=== PATIENT | male | born 1960 | race Caucasian/White ===

== ENCOUNTER 2023-07-23 22:03 | Emergency (ER) | payer SELFPAY ==
[~2023-07-23] VITALS: Ht 190.5 cm; Wt 106.6 kg
[2023-07-23] MEDS ORDERED: DIVA125T2 PO (22:52)
[2023-07-23] MEDS ORDERED: TEMA15CA5 PO (22:52)
[2023-07-23] MEDS ORDERED: AMPH30TA3 PO (22:52)
[2023-07-23 23:02] LABS: BASOPHILS # (AUTO) 0.1 K/UL (0.0-0.2); BASOPHILS % (AUTO) 0.6 % (0.0-2.0); EOSINOPHILS # (AUTO) 0.1 K/uL (0.0-0.7); HEMATOCRIT 47.8 % (36.7-47.1); HEMOGLOBIN 16.2 g/dL (12.5-16.3); LYMPHOCYTES # (AUTO) 2.4 K/uL (0.8-4.8); LYMPHOCYTES % (AUTO) 20.9 % (20.5-51.5); MEAN CORPUSCULAR HEMOGLOBIN 30.2 uug (23.8-33.4); MEAN CORPUSCULAR HGB CONC 34 g/dL (32.5-36.3); MEAN CORPUSCULAR VOLUME 89.2 fL (73.0-96.2); MONOCYTES # (AUTO) 1.3 K/uL (0.1-1.30); MONOCYTES % (AUTO) 11.6 % (0.0-11.0); NEUTROPHILS # (AUTO) 7.5 K/uL (1.8-8.9); NEUTROPHILS % (AUTO) 65.9 % (38.5-71.5); PLATELET COUNT (AUTO) 247 K/uL (152-348); RED BLOOD CELL COUNT(AUTO) 5.36 MIL/uL (4.06-5.63); RED CELL DISTRIBUTION WIDTH 13.7 % (12.1-16.2); WHITE BLOOD COUNT (AUTO) 11.4 K/uL (3.6-10.2)
[2023-07-23 23:03] LABS: CALCIUM 9.2 mg/dL (8.5-10.1); CARBON DIOXIDE 25 mmol/L (21-32); CHLORIDE 107 mmol/L (98-107); CREATININE 1.2 mg/dL (0.6-1.3); GLUCOSE 159 mg/dL (74-106); POTASSIUM 3.9 mmol/L (3.5-5.1); SODIUM SERUM 144 mmol/L (136-145); UREA NITROGEN, BLOOD 21 mg/dL (7-18)
[2023-07-23 23:04] LABS: ETHANOL < 3 MG/DL (0-10)
[2023-07-23 23:17] LABS: ALANINE AMINOTRANSFERASE 53 U/L (16-63); ALBUMIN 3.3 g/dL (3.4-5.0); ALKALINE PHOSPHATASE 80 U/L (50-136); ASPARTATE AMINOTRANSFERASE 18 U/L (15-37); BILIRUBIN,TOTAL 0.6 mg/dL (0.2-1.0); NT-PRO BNP 220 pg/mL (0-125); TOTAL PROTEIN, SERUM 6.7 g/dL (6.4-8.2)
[2023-07-24] VITALS: BP 140/83; TEMP 98.6; O2SAT 97
== END 2023-07-24 00:16 | disposition left against medical advice (07) ==
LOC: ER 22:05
DX: R56.9 Unspecified convulsions (principal); Z79.899 Other long term (current) drug therapy; Z60.2 Problems related to living alone
CPT/HCPCS: 36415; 70450; 83605; 84484; 85025; 93005; A4606; A4663; G0480